=== PATIENT | female | born 2000 | race Caucasian/White ===

== ENCOUNTER 2019-05-25 21:32 | Emergency (ER) | payer MEDICAID ==
[~2019-05-25] VITALS: Ht 162.6 cm; Wt 81.6 kg
--- NOTE | 2019-05-25 21:47 | Emergency Room Report ---
History of Present Illness General Chief Complaint: Upper Extremity Injury Source: Patient Present Illness HPI Is a 19-year-old female who is right-hand dominant. She presents with chief complaint of left thumb pain. Onset was acute and occur a few hours ago. She states she was playing with her boyfriend wrestling and her hand got caught underneath her body. She says she felt a pop and then had pain over her left thumb. No swelling. Worse with movement. Pain is 8 out of 10. Throbbing in nature. Better with rest. No other injury. Allergies: Coded Allergies: No Known Allergies (Unverified , 05/25/19) Patient History Past Medical History: see triage record, old chart reviewed Past Surgical History: none Pertinent Family History: none Social History: Denies: smoking Now: No - unk Immunizations: other Reviewed Nursing Documentation: PMH: Agreed; PSxH: Agreed Nursing Documentation-PM Past Medical History: No Stated History Review of Systems Eye: Denies: eye pain, blurred vision ENT: Denies: ear pain, nose congestion, throat swelling Respiratory: Denies: cough, shortness of breath Cardiovascular: Denies: chest pain, palpitations Gastrointestinal: Denies: abdominal pain, diarrhea, nausea, vomiting Musculoskeletal: Reports: joint pain; Denies: back pain Skin: Denies: rash Neurological: Denies: headache, numbness Endocrine: Denies: increased thirst, increased urine Hematologic/Lymphatic: Denies: easy bruising All Other Systems: negative except mentioned in HPI Physical Exam Vital Signs Date Time Temp Pulse Resp B/P (MAP) Pulse Ox O2 Delivery O2 Flow Rate FiO2 05/25/19 21:37 98.2 78 16 155/95 (115) 98 Room Air Vitals with high blood pressure Sp02 EP Interpretation: reviewed, normal General Appearance: well appearing, no apparent distress, alert Head: normocephalic, atraumatic Eyes: bilateral eye PERRL, bilateral eye EOMI ENT: hearing grossly normal, normal pharynx Neck: full range of motion, supple, no meningismus Respiratory: chest non-tender, lungs clear, normal breath sounds Cardiovascular #1: regular rate, rhythm, no murmur Gastrointestinal: normal bowel sounds, non tender, no mass, no organomegaly, no bruit, non-distended Musculoskeletal: back normal, gait/station normal, normal range of motion, other - Left thumb: She has tenderness over the MCP joint. Thumb is stable. Full range of motion. Sensation normal. No edema. Psychiatric: mood/affect normal Procedures Splinting Splinting : Consent: Verbal Location: Left thumb Pre-Made Type: velcro Splint: thumb spica Pre-Proc Neuro Vasc Exam: normal Post-Proc Neuro Vasc Exam: normal Patient Tolerated: Well Complications: None Medical Decision Making Diagnostic Impression: Primary Impression: Left thumb sprain Qualified Codes: S63.642A - Sprain of metacarpophalangeal joint of left thumb , initial encounter ER Course Patient presents with left thumb sprain. No fracture dislocation. Will discharge home. Other X-Ray Diagnostic Results Other X-Ray Diagnostic Results : X-Ray ordered: Left thumb x-rays # of Views/Limited Vs Complete: 3 View Indication: Pain EP Interpretation: Yes Interpretation: no dislocation, no soft tissue swelling, no fractures Impression: No acute disease Electronically Signed by: Erickson Zaman MD Last Vital Signs Date Time Temp Pulse Resp B/P (MAP) Pulse Ox O2 Delivery O2 Flow Rate FiO2 05/25/19 21:37 98.2 78 16 155/95 (115) 98 Room Air Status: improved Disposition: HOME, SELF-CARE Condition: Stable Scripts Ibuprofen* (MOTRIN*) 600 Mg Tablet 600 MG ORAL THREE TIMES A DAY, #30 TAB 0 Refills Prov: Erickson Zaman MD 05/25/19 Additional Instructions: Follow-up with your doctor in 7 days. Return if symptoms worsen. Erickson Zaman MD May 25, 2019 21:47
--- NOTE | 2019-05-25 21:51 | NUR ---
ED Nurse Note: pt walked in c/o left wrist pain, pt reports she was playing with her boyfriend and think accidentally sprained it, no obvious deformity noted, no contusion nor open wound at this time, cms intact, active ROM, will cont monitor.
[2019-05-25 22:02] VITALS: BP 155/95
[2019-05-25] MEDS ORDERED: IBUPROFEN600 MG ORAL (22:06)
[2019-05-25 22:15] VITALS: BP 125/75
--- NOTE | 2019-05-25 22:15 | NUR ---
ED Nurse Note: PT CLEARED TO BE D/C PER ERMD, PT DISCHARGE AND AFTERCARE INSTRUCTION PROVIDED W/ PRESCRIPTION, PT EDUCATION DONE VIA DISCUSSION AND HANDOUT, PT ADVISED TO FOLLOW UP WITH PCP OR RETURN TO ED IF CHANGES IN CONDITION, VSS, AMBULATORY W/ STEADY GAIT, LEFT W/ ALL BELONGINGS.
--- NOTE | 2019-05-26 11:00 | Diagnostic Imaging Report ---
Indication: pain in finger. trauma Findings: 3 views of the left thumb were obtained. No acute fractures, malalignment, erosions, or periosteal reaction are seen. Soft tissues are unremarkable. Impression: No acute findings.
== END 2019-05-25 22:15 | disposition home or self-care (01) ==
LOC: EMR 21:48
DX: S63.642A Sprain of metacarpophalangeal joint of left thumb, initial encounter (principal); Y93.72 Activity, wrestling; Y92.9 Unspecified place or not applicable
CPT/HCPCS: 99283